=== PATIENT | female | born 1990 | race Caucasian/White ===

== ENCOUNTER → 2020-07-02 | Outpatient (CLI) | payer OTHER ==
[2020-07-02 10:29] LABS: Basophils # (A) 0.1 k/uL (0-0.2); Basophils % (A) 1 %; Eosinophils # (A) 0.2 k/uL (0-0.7); Eosinophils % (A) 3 %; HCT 38.2 % (34.0-46.0); Lymphocytes # (A) 2.6 k/uL (1.0-4.8); Lymphocytes % (A) 32 %; MCH 29.5 pg (25.0-35.0); MCHC 34.1 g/dL (31.0-37.0); MCV 86.5 fL (80.0-100.0); Mean Platelet Volume 9.6; Monocytes # (A) 0.3 k/uL (0-1.0); Monocytes % (A) 3 %; Neutrophils % (A) 60 %; Platelet Count 188 k/uL (150-450); RBC 4.42 m/uL (3.80-5.40); WBC 8.3 k/uL (3.8-10.6)
== END | disposition home or self-care (01) ==
LOC: LABPAT 08:53
PROVIDERS: ATTEND Orthopaedic Surgery
DX: Z01.818 Encounter for other preprocedural examination (principal); G56.01 Carpal tunnel syndrome, right upper limb
CPT/HCPCS: 36415; 81025; 85025; 93005

== ENCOUNTER 2020-07-04 13:47 | Day surgery (SDC) | payer OTHER ==
[2020-07-01 09:27] VITALS: BMI 47.0
--- NOTE | 2020-07-03 21:29 | HP ---
HISTORY AND PHYSICAL DATE OF SERVICE: Surgery 07/04/2020 HISTORY OF PRESENT ILLNESS: Flaco Hope is a 30-year-old gentleman seen with symptomatic left carpal tunnel syndrome. After we discussed options for treatment, he elected to proceed with decompression left median nerve. Consent was obtained. PAST MEDICAL HISTORY: Jta-cghjydv-mlebjatyi diabetes, hypertension. PAST SURGICAL HISTORY: Noncontributory. MEDICATIONS: Januvia, lisinopril, metformin. ALLERGIES: None reported. SOCIAL HISTORY: Denies tobacco use. PHYSICAL EXAMINATION: Evaluation of the left hand, he has a positive carpal compression and carpal Tinel's causing increased numbness and tingling in the median nerve distribution. He does have some decreased sensations throughout the median nerve distribution. There is good perfusion distally. There is good radial pulse present. He has full range of motion of his digits and wrist. RADIOGRAPHS: Radiographs of the wrist failed to reveal any osseous abnormality. IMPRESSION: 1. Left carpal tunnel syndrome. 2. Hypertension. 3. Hyg-ulimoqh-awdhqundc diabetes. PLAN: Decompression left median nerve. Surgery 07/04/2020. MMODL / IJN: [id number] /
[~2020-07-04 13:47] MED LIST: LACTATED RINGERS 1,000 ML IV SCH
[2020-07-04 14:12] VITALS: TEMP 96.9
[2020-07-04] MEDS ORDERED: ONDANSETRON 4 MG/2 ML VIAL ONE (14:18)
[2020-07-04 14:20] LABS: Glucose,Whole Blood 85 mg/dL (75-99)
[2020-07-04] MEDS ORDERED: DEXAMETHASONE SOD PHOSPHATE 4 MG/ML 1 ML VIAL IVP ONE (14:20)
[2020-07-04] MEDS ORDERED: ONDANSETRON 4 MG/2 ML VIAL IVP ONE (14:20)
[2020-07-04 14:54] LABS: ALT 21 U/L (4-34); AST 26 U/L (14-36); African American GFR (CKD) >90 (>60 ml/min/1.73 sqM); Albumin 4.1 g/dL (3.5-5.0); Alkaline Phosphatase 51 U/L (38-126); Anion Gap 9 mmol/L; Blood Urea Nitrogen 11 mg/dL (7-17); Carbon Dioxide 23 mmol/L (22-30); Chloride 103 mmol/L (98-107); Glucose 87 mg/dL (74-99); Non-African American GFR(CKD) >90 (>60 ml/min/1.73 sqM); Potassium 4.3 mmol/L (3.5-5.1); Sodium 135 mmol/L (137-145); Total Bilirubin 0.6 mg/dL (0.2-1.3)
[2020-07-04] MEDS ORDERED: BUPIVACAINE (PF) 0.25% 30 ML VIAL SQ ONE ×2 (15:54→16:11)
[2020-07-04] MEDS ORDERED: MIDAZOLAM 2 MG/2 ML VIAL ONE (15:55)
[2020-07-04] MEDS ORDERED: PROPOFOL 10 MG/ML 20 ML VIAL IV ONE (15:55)
[2020-07-04] MEDS ORDERED: fentaNYL (PF) 50 MCG/ML 2 ML AMP ONE (15:55)
[2020-07-04] MEDS ORDERED: KETAMINE 10 MG/ML 20 ML VIAL ONE (15:55)
--- NOTE | 2020-07-04 16:32 | P.OP ---
Date of Procedure: 07/04/20 Preoperative Diagnosis: Right carpal tunnel syndrome Postoperative Diagnosis: Right carpal tunnel syndrome Procedure(s) Performed: Decompression right median nerve Anesthesia: MAC, local Surgeon: James Steinberg Estimated Blood Loss (ml): 1 Pathology: none sent Condition: stable Disposition: PACU Indications for Procedure: 30-year-old patient seen with symptomatic right carpal tunnel syndrome. After having treatment options discussed, she elected to proceed with decompression right median nerve. Operative Findings: See description of procedure Description of Procedure: The patient was taken to the operative suite. The patient received IV antibiotics. The patient underwent IV sedation by the department of anesthesia. A well-padded tourniquet was placed proximal right upper extremity. The right upper extremity was prepped and draped in the normal sterile orthopedic fashion. I infiltrated the proposed incision site with 10 mL quarter percent plain Marcaine. The extremity was elevated and tourniquet insufflated to 250. I made an incision beginning at the distal volar wrist crease extending distally approximately 3 cm in line with the fourth metacarpal sharply through skin. I dissected down through the palmar fascia to the transverse carpal ligament. I now made a small incision through the central portion of transcarpal ligament. I completed the release proximally and distally with blunt Metzenbaums. There was good complete decompression of the nerve noted. I used cautery for hemostasis. There was good hemostasis. The wound was irrigated. I repaired the skin with nylon suture. I applied sterile dressings. The tourniquet was released with immediate capillary refill of all digits noted. The patient was now awakened and transferred to recovery stable condition.
[2020-07-04 16:42] VITALS: RESP 16
[2020-07-04 17:02] VITALS: BP 117/80; PULSE 69
== END 2020-07-04 17:24 | disposition home or self-care (01) ==
LOC: OR 13:47
PROVIDERS: ATTEND Orthopaedic Surgery
DX: G56.01 Carpal tunnel syndrome, right upper limb (principal); I10 Essential (primary) hypertension; E11.9 Type 2 diabetes mellitus without complications; Z79.84 Long term (current) use of oral hypoglycemic drugs; Z79.899 Other long term (current) drug therapy; Z98.890 Other specified postprocedural states
CPT/HCPCS: 80053; 64721; J2250; J1100; J0690; J2405; J3010; J2704

== ENCOUNTER 2020-07-18 10:16 | Day surgery (SDC) | payer OTHER ==
[2020-07-16 08:41] VITALS: BMI 47.9
--- NOTE | 2020-07-17 20:22 | HP ---
HISTORY AND PHYSICAL REASON FOR ADMISSION: Surgery scheduled for 07/18/2020 HISTORY OF PRESENT ILLNESS: Flaco Hope is a 30-year-old gentleman seen with symptomatic left carpal tunnel syndrome. We discussed options for treatment. The patient elected to proceed with decompression of the left median nerve. Consent regarding the procedure was obtained. PAST MEDICAL HISTORY: Bgk-bszryvt-ngslaejhh diabetes, hypertension. PAST SURGICAL HISTORY: Noncontributory. MEDICATIONS: Januvia, lisinopril, metformin. ALLERGIES: NONE. SOCIAL HISTORY: Patient denies tobacco use. PHYSICAL EXAMINATION: Physical evaluation of left hand reveals positive carpal compression, chronic positive carpal Tinel's both causing numbness and tingling throughout the median nerve distribution. There is some decreased sensation throughout the median nerve distribution. There is no tenderness along the A1 jose sites. There is good perfusion distally. There is a good radial pulse present. Radiographs revealed no osseous abnormality. IMPRESSION: 1. Left carpal tunnel syndrome. 2. Hypertension. 3. Dyt-zvlqdtf-sgzwnicqr diabetes. PLAN: Decompression left median nerve. Surgery scheduled for 07/18/2020. MMODL / IJN: [id number] /
[~2020-07-18 10:16] MED LIST changes: +DEXAMETHASONE SOD PHOSPHATE 4 MG/ML 1 ML VIAL IV ONE; +HYDROmorphone 0.5 MG/0.5 ML SYRINGE IVP PRN; +ONDANSETRON 4 MG/2 ML VIAL IVP ONE
[2020-07-18 10:59] LABS: Glucose,Whole Blood 165 mg/dL (75-99)
[2020-07-18 11:02] VITALS: TEMP 97.1
[2020-07-18] MEDS ORDERED: LIDOCAINE 1% (10MG/ML) FOR IV START IV ONE (11:04)
[2020-07-18] MEDS ORDERED: BUPIVACAINE (PF) 0.25% 30 ML VIAL SQ ONE ×2 (11:34→11:49)
[2020-07-18] MEDS ORDERED: fentaNYL (PF) 50 MCG/ML 2 ML AMP ONE (11:39)
[2020-07-18] MEDS ORDERED: PROPOFOL 10 MG/ML 20 ML VIAL IV ONE (11:39)
[2020-07-18] MEDS ORDERED: MIDAZOLAM 2 MG/2 ML VIAL ONE (11:39)
--- NOTE | 2020-07-18 12:14 | P.OP ---
Date of Procedure: 07/18/20 Preoperative Diagnosis: Left carpal tunnel syndrome Postoperative Diagnosis: Left carpal tunnel syndrome Procedure(s) Performed: Decompression left median nerve Anesthesia: MAC, local Surgeon: James Steinberg Estimated Blood Loss (ml): 0 Pathology: none sent Condition: stable Disposition: PACU Indications for Procedure: 30-year-old patient seen with symptomatic left carpal tunnel syndrome. After having treatment options discussed, she elected to proceed with decompression. Consent was obtained. Operative Findings: See description of procedure Description of Procedure: She was taken to the operative suite. Patient received preoperative IV antibiotics. Well-padded tourniquet placed proximal left upper extremity. Left upper extremity was prepped and draped in the normal sterile orthopedic fashion. The patient received IV sedation by the department of anesthesia. The proposed incision site was infiltrated with 15 mL of quarter percent plain Marcaine. When sufficient local analgesia was noted the extremity was elevated and tourniquet insufflated to 250. I made an incision beginning at the distal volar wrist crease extending distally approximately 3 cm in line with the fourth the carpal sharply through skin. I dissected down to the transverse carpal ligament. I made a small incision through the transverse carpal ligament. I released the transverse carpal ligament proximally and distally with blunt Metzenbaums. There was good complete release of the ligament noted. Some hemostasis was achieved via electrocautery. The skin margins were proximal nylon suture. I applied sterile dressings followed by sterile web roll and Coban. The tourniquet was released and I noted immediate capillary refill of all digits. The patient then transferred to recovery in stable condition having tolerated procedure well.
[2020-07-18 12:40] VITALS: RESP 18
[2020-07-18 12:56] VITALS: BP 110/74; PULSE 74
== END 2020-07-18 13:01 | disposition home or self-care (01) ==
LOC: OR 10:16
PROVIDERS: ATTEND Orthopaedic Surgery
DX: G56.02 Carpal tunnel syndrome, left upper limb (principal); E11.9 Type 2 diabetes mellitus without complications; I10 Essential (primary) hypertension; Z79.84 Long term (current) use of oral hypoglycemic drugs; Z79.899 Other long term (current) drug therapy; F17.200 Nicotine dependence, unspecified, uncomplicated
CPT/HCPCS: 64721; J2250; J1100; J0690; J2405; J3010; J2704

== ENCOUNTER → 2021-01-13 | Outpatient (CLI) | payer OTHER ==
[2021-01-13 14:41] VITALS: BP 133/83; PULSE 70; RESP 16; TEMP 98.2; BMI 48.5
[2021-01-13 15:54] LABS: HCT 38.1 % (34.0-46.0); HGB 12.7 gm/dL (11.4-16.0); MCH 29.5 pg (25.0-35.0); MCHC 33.4 g/dL (31.0-37.0); MCV 88.5 fL (80.0-100.0); Mean Platelet Volume 9.8; Platelet Count 209 k/uL (150-450); RBC 4.31 m/uL (3.80-5.40); RDW 12.8 % (11.5-15.5); WBC 9.6 k/uL (3.8-10.6)
--- NOTE | 2021-01-13 15:59 | P.HPBAR ---
Bariatric H&P - History & Physicial H&P Date: 01/13/21 History & Physicial: Visit/CC: Initial Visit Patient initial contact: Initial weight: 121.563 kg Initial weight in pounds: 268.00 Height: 5 ft 1.5 in Initial BMI: 49.0 Last weight: Current weight: 122.215 kg Current weight in pounds: 265.38 Current BMI: 48.5 [place] body weight (based on NIH guidelines): 49.895 kg Excess body weight loss: 1.6% The patient is a 30 year-old F who presents for Bariatric Assessment. She presents today for initial consultation. She is morbidly obese. Her BMI is 50. She is interested sleeve gastrectomy. Past Medical History Past Medical History: Diabetes Mellitus, Hypertension History of Any Multi-Drug Resistant Organisms: None Reported Past Surgical History: Section Past Anesthesia/Blood Transfusion Reactions: No Reported Reaction Smoking Status: Current some day smoker - Past Family History Mother Family Medical History: No Reported History Surgical - Exam Vital Signs Temp Pulse Resp BP 98.2 F 70 16 133/83 01/13/21 14:32 01/13/21 14:32 01/13/21 14:32 01/13/21 14:32 - General well developed, well nourished, no distress - Eyes PERRL - ENT normal pinna - Neck no masses - Respiratory normal expansion - Cardiovascular Rhythm: regular - Abdomen Abdomen: soft, non tender Results - Labs 01/13/21 15:05 Bariatric Assessment & Plan Plan: Morbid obesity. Patient will be scheduled for EGD. Patient has an excellent understanding of sleeve gastrectomy. Over the risks and benefits of procedure. Patient will follow-up after EGD is performed. Bariatric Checklist Checklist: Plan: Checklist: EGD: 1. Hiatal hernia: 2. H. Pylori: HgbA1c: Vitamin D: Smoking: Primary care physician referral: Psychiatry clearance: Cardiology clearance: Sleep study: Diet journal: VTE risk score: VTE risk level: Rehab needs at discharge:
[2021-01-14 04:42] LABS: ALT 48 U/L (8-44); AST 26 U/L (13-35); African American GFR (CKD) 148.3 (60.0-200.0); Albumin 4.3 g/dL (3.8-4.9); Albumin/Globulin Ratio 1.71 (1.60-3.17); Alkaline Phosphatase 65 U/L (41-126); BUN/Creat Ratio 19.31 Ratio (12.00-20.00); Blood Urea Nitrogen 10.1 mg/dL (9.0-27.0); Calcium 9.3 mg/dL (8.7-10.3); Carbon Dioxide 20.8 mmol/L (21.6-31.8); Chloride 100 mmol/L (96-109); Globulin 2.5 g/dL (1.6-3.3); Glucose 241 mg/dL (70-110); Potassium 4.3 mmol/L (3.5-5.5); Sodium 133 mmol/L (135-145); Total Bilirubin <0.20 mg/dL (0.30-1.20); Total Protein 6.8 g/dL (6.2-8.2)
== END ==
LOC: BARWHC3 14:19
PROVIDERS: ATTEND Surgery
DX: E66.01 Morbid (severe) obesity due to excess calories (principal); I10 Essential (primary) hypertension; E11.9 Type 2 diabetes mellitus without complications; F17.200 Nicotine dependence, unspecified, uncomplicated; Z68.43 Body mass index [BMI] 50.0-59.9, adult
CPT/HCPCS: 80053; 82306; 82607; 82746; 83036; 84425; 85027; 93005; 99203

== ENCOUNTER 2021-04-07 07:00 | Day surgery (SDC) | payer OTHER ==
[2021-04-03 09:17] VITALS: BMI 50.1
[2021-04-07] MEDS ORDERED: LACTATED RINGERS 1,000 ML IV SCH (07:51)
[2021-04-07] MEDS ORDERED: LIDOCAINE 1% (10MG/ML) FOR IV START INTRADERMA PRN (07:51)
[2021-04-07 07:56] VITALS: TEMP 97.2
[2021-04-07 08:15] LABS: Glucose,Whole Blood 128 mg/dL (75-99)
[2021-04-07] MEDS ORDERED: GLYCOPYRROLATE 0.2 MG/ML 2 ML VIAL ONE (08:32)
[2021-04-07] MEDS ORDERED: LIDOCAINE 1% INJ 10MG/ML (20 ML MDV) ONE (08:32)
[2021-04-07] MEDS ORDERED: KETAMINE 10 MG/ML 20 ML VIAL ONE (08:32)
[2021-04-07] MEDS ORDERED: PROPOFOL 10 MG/ML 20 ML VIAL IV ONE (08:32)
--- NOTE | 2021-04-07 08:35 | P.GSHP ---
History of Present Illness H&P Date: 04/07/21 Chief Complaint: GERD, morbid obesity Is a 31-year-old female with GERD. Patient's undergoing workup for sleeve gastrectomy. BMI is 51. Past Medical History Past Medical History: Diabetes Mellitus, Hypertension History of Any Multi-Drug Resistant Organisms: None Reported Past Surgical History: Section, Orthopedic Surgery Additional Past Surgical History / Comment(s): carpal tunnel danielle, Past Anesthesia/Blood Transfusion Reactions: No Reported Reaction Smoking Status: Former smoker - Past Family History Mother Family Medical History: No Reported History Medications and Allergies Home Medications Medication Instructions Recorded Confirmed Type lisinopriL [Prinivil] 20 mg PO QAM 07/01/20 04/03/21 History metFORMIN HCL [Glucophage] 1,000 mg PO BID 07/01/20 04/03/21 History Pioglitazone [Actos] 30 mg PO DAILY 03/05/21 04/03/21 History L.acidoph,Paracasei, B.lactis 1 each PO DAILY 04/03/21 04/03/21 History [Probiotic] Multivitamins, Thera [Multivitamin 1 tab PO DAILY 04/03/21 04/03/21 History (formulary)] Allergies Allergy/AdvReac Type Severity Reaction Status Date / Time No Known Allergies Allergy Verified 04/07/21 07:51 Surgical - Exam Vital Signs Temp Pulse Resp BP Pulse Ox 97.2 F L 57 L 20 137/77 96 04/07/21 07:55 04/07/21 07:55 04/07/21 07:55 04/07/21 07:55 04/07/21 07:55 - General well developed, well nourished, no distress - Eyes PERRL - ENT normal pinna - Neck no masses - Respiratory normal expansion - Cardiovascular Rhythm: regular - Abdomen Abdomen: soft, non tender Results - Labs Abnormal Lab Results - Last 24 Hours (Table) 04/07/21 Range/Units 08:12 POC Glucose (mg/dL) 128 H (75-99) mg/dL Assessment and Plan Assessment: GERD, morbid obesity. We'll perform EGD.
--- NOTE | 2021-04-07 08:42 | P.OP ---
Date of Procedure: 04/07/21 Preoperative Diagnosis: GERD Morbid obesity Postoperative Diagnosis: Morbid obesity Antral gastritis Procedure(s) Performed: EGD Anesthesia: MAC Surgeon: Steve Palma Pathology: other (Antrum) Condition: stable Disposition: PACU Description of Procedure: Patient's placed on the endoscopy table in the lateral position. She received IV sedation. The gastroscope placed oropharynx passed in the esophagus into the stomach. Scope was placed through the pylorus. The first and second portion of the duodenum appeared normal. Scope summer back the antrum this. Mildly inflamed. A biopsies performed. Scope was then retroflexed and the remainder of the stomach appeared normal. The GE junction was at 40 cm. The distal esophagus appeared normal. The proximal esophagus. Normal. Scope withdrawn for patient.
[2021-04-07 08:52] VITALS: RESP 15
[2021-04-07 09:07] VITALS: BP 116/76; PULSE 75
== END 2021-04-07 09:18 | disposition home or self-care (01) ==
LOC: ORWHC2ENDO 07:00
PROVIDERS: ATTEND Surgery
DX: K21.9 Gastro-esophageal reflux disease without esophagitis (principal); K29.50 Unspecified chronic gastritis without bleeding; E66.01 Morbid (severe) obesity due to excess calories; Z68.43 Body mass index [BMI] 50.0-59.9, adult; E11.9 Type 2 diabetes mellitus without complications; I10 Essential (primary) hypertension; F41.9 Anxiety disorder, unspecified; Z98.891 History of uterine scar from previous surgery; Z98.890 Other specified postprocedural states; Z87.891 Personal history of nicotine dependence; Z79.84 Long term (current) use of oral hypoglycemic drugs; Z79.899 Other long term (current) drug therapy
CPT/HCPCS: 81025; 88305; 43239; J2001; J2704

== ENCOUNTER → 2021-04-21 | Outpatient (CLI) | payer OTHER ==
[2021-04-21 11:42] VITALS: BMI 49.4
[2021-04-21 13:31] VITALS: BP 127/83; PULSE 61; RESP 16; TEMP 97.7
--- NOTE | 2021-04-21 15:29 | P.HPBAR ---
Bariatric H&P - History & Physicial H&P Date: 04/21/21 History & Physicial: Visit/CC: EGD F/U Patient initial contact: Initial weight: 121.563 kg Initial weight in pounds: 268.00 Height: 5 ft 1 in Initial BMI: 49.0 Last weight: Current weight: 122.47 kg Current weight in pounds: 270.00 Current BMI: 49.4 [place] body weight (based on NIH guidelines): 49.895 kg Excess body weight loss: The patient is a 31 year-old F who presents for Bariatric Assessment. Patient presents today for presurgical consultation. She is undergone recent EGD. She is morbidly obese. Her BMI is 51. She has an excellent understanding of sleeve gastrectomy. Past Medical History Past Medical History: Diabetes Mellitus, Hypertension History of Any Multi-Drug Resistant Organisms: None Reported Past Surgical History: Section Additional Past Surgical History / Comment(s): carpal tunnel danielle, Past Anesthesia/Blood Transfusion Reactions: No Reported Reaction Past Psychological History: Anxiety Smoking Status: Current some day smoker Past Alcohol Use History: Occasional Additional Past Alcohol Use History / Comment(s): quit smoking dec 2020, smoked for 3-4 yrs Past Drug Use History: None Reported - Past Family History Mother Family Medical History: No Reported History Surgical - Exam Vital Signs Temp Pulse Resp BP 97.7 F 61 16 127/83 04/21/21 13:29 04/21/21 13:29 04/21/21 13:29 04/21/21 13:29 - General well developed, well nourished, no distress - Eyes PERRL - ENT normal pinna - Neck no masses - Respiratory normal expansion - Cardiovascular Rhythm: regular - Abdomen Abdomen: soft, non tender Bariatric Assessment & Plan Plan: Morbid obesity, BMI 51. Patient will be scheduled for laparoscopic sleeve gastrectomy once her insurance authorization requirements have been met. Bariatric Checklist Checklist: Plan: Checklist: EGD: 1. Hiatal hernia: 2. H. Pylori: HgbA1c: Vitamin D: Smoking: Primary care physician referral: Dr. LANGFORD Psychiatry clearance: Cardiology clearance: Sleep study: Diet journal: VTE risk score: VTE risk level: Rehab needs at discharge:
== END ==
LOC: BARWHC3 08:48
PROVIDERS: ATTEND Surgery
DX: E66.01 Morbid (severe) obesity due to excess calories (principal); E11.9 Type 2 diabetes mellitus without complications; I10 Essential (primary) hypertension; F41.9 Anxiety disorder, unspecified; Z87.891 Personal history of nicotine dependence; Z68.43 Body mass index [BMI] 50.0-59.9, adult; Z71.51 Drug abuse counseling and surveillance of drug abuser
CPT/HCPCS: 80323; 80307; 99211; 97804; G0482

== ENCOUNTER 2021-09-30 23:34 | Observation (INO) | payer OTHER ==
[2021-10-01 00:32] LABS: Basophils # (A) 0.1 k/uL (0-0.2); Basophils % (A) 1 %; Eosinophils # (A) 0.2 k/uL (0-0.7); Eosinophils % (A) 2 %; HGB 12.3 gm/dL (11.4-16.0); Lymphocytes % (A) 34 %; MCHC 34.1 g/dL (31.0-37.0); Mean Platelet Volume 9.3; Monocytes # (A) 0.3 k/uL (0-1.0); Monocytes % (A) 4 %; Neutrophils # (A) 5.1 k/uL (1.3-7.7); Neutrophils % (A) 59 %; Platelet Count 229 k/uL (150-450); RBC 4.09 m/uL (3.80-5.40); RDW 13.3 % (11.5-15.5); WBC 8.7 k/uL (3.8-10.6)
[2021-10-01 00:51] LABS: ALT 19 U/L (4-34); AST 19 U/L (14-36); African American GFR (CKD) >90 (>60 ml/min/1.73 sqM); Albumin 4.4 g/dL (3.5-5.0); Alkaline Phosphatase 53 U/L (38-126); Anion Gap 9 mmol/L; Blood Urea Nitrogen 11 mg/dL (7-17); Calcium 9.2 mg/dL (8.4-10.2); Carbon Dioxide 24 mmol/L (22-30); Chloride 104 mmol/L (98-107); Glucose 115 mg/dL (74-99); Non-African American GFR(CKD) >90 (>60 ml/min/1.73 sqM); Potassium 4.1 mmol/L (3.5-5.1); Sodium 137 mmol/L (137-145); Total Bilirubin 0.3 mg/dL (0.2-1.3); Total Protein 7.4 g/dL (6.3-8.2)
--- NOTE | 2021-10-01 00:54 | XR ---
EXAM: XR Chest, 2 Views CLINICAL HISTORY: ITS. REASON XR Reason: Chest Pain TECHNIQUE: Frontal and lateral views of the chest. COMPARISON: No relevant prior studies available. FINDINGS: Lungs: Unremarkable. No consolidation. Pleural space: Unremarkable. No pneumothorax. Heart: Borderline cardiomegaly. Mediastinum: Unremarkable. Bones/joints: Unremarkable. IMPRESSION: No acute abnormality.
--- NOTE | 2021-10-01 02:11 | ED ---
Chest Pain HPI - General Chief Complaint: Chest Pain Stated Complaint: Chest pressure, dizziness Time Seen by Provider: 10/01/21 02:10 Source: patient, RN notes reviewed, old records reviewed Mode of arrival: wheelchair Limitations: no limitations - History of Present Illness Initial Comments: This is a 31-year-old female to the emergency department for evaluation history of high blood pressure diabetes coming with chest pain and near syncopal events episodes of bradycardia. She's had on and off chest pain for about 5 days now unsure problem provoking factors. Nothing seems to make it better worsen just appears to come on. Patient states she's had multiple episodes here in the ER where she feels heaviness on her chest like she is given a pass out. MD Complaint: chest pain -: days(s) (5) Onset: during rest, during exertion Pain Location: substernal, left chest Pain Radiation: none Severity: moderate Severity scale (1-10): 4 Quality: tightness, heaviness Consistency: intermittent Improves With: nothing Worsens With: exertion, inspiration Anginal Symptoms: dyspnea Other Symptoms: palpitations (low HR) Treatments Prior to Arrival: none - Related Data Home Medications Medication Instructions Recorded Confirmed lisinopriL [Prinivil] 20 mg PO QAM 07/01/20 04/21/21 metFORMIN HCL [Glucophage] 1,000 mg PO BID 07/01/20 04/21/21 Pioglitazone [Actos] 30 mg PO DAILY 03/05/21 04/21/21 L.acidoph,Paracasei, B.lactis 1 each PO DAILY 04/03/21 04/21/21 [Probiotic] Multivitamins, Thera [Multivitamin 1 tab PO DAILY 04/03/21 04/21/21 (formulary)] Allergies Allergy/AdvReac Type Severity Reaction Status Date / Time No Known Allergies Allergy Verified 10/01/21 00:24 Review of Systems ROS Statement: Those systems with pertinent positive or pertinent negative responses have been documented in the HPI. ROS Other: All systems not noted in ROS Statement are negative. EKG Findings - EKG Comments: EKG Findings:: EKG is sinus rhythm 61. NV 186 QRS 114 QTc 44 Past Medical History Past Medical History: Diabetes Mellitus, Hypertension History of Any Multi-Drug Resistant Organisms: None Reported Past Surgical History: Section Additional Past Surgical History / Comment(s): carpal tunnel danielle, Past Anesthesia/Blood Transfusion Reactions: No Reported Reaction Past Psychological History: Anxiety Smoking Status: Current some day smoker Past Alcohol Use History: Occasional Past Drug Use History: None Reported - Past Family History Mother Family Medical History: No Reported History General Exam General appearance: alert, in no apparent distress, anxious, obese Head exam: Present: atraumatic, normocephalic, normal inspection Eye exam: Present: normal appearance, PERRL, EOMI. Absent: scleral icterus, conjunctival injection, periorbital swelling ENT exam: Present: normal exam, mucous membranes moist Neck exam: Present: normal inspection. Absent: tenderness, meningismus, lymphadenopathy Respiratory exam: Present: normal lung sounds bilaterally. Absent: respiratory distress, wheezes, rales, rhonchi, stridor Cardiovascular Exam: Present: regular rate, normal rhythm, normal heart sounds. Absent: systolic murmur, diastolic murmur, rubs, gallop, clicks GI/Abdominal exam: Present: soft, normal bowel sounds. Absent: distended, tenderness, guarding, rebound, rigid Extremities exam: Present: normal inspection, full ROM, normal capillary refill. Absent: tenderness, pedal edema, joint swelling, calf tenderness Back exam: Present: normal inspection Neurological exam: Present: alert, oriented X3, CN II-XII intact Psychiatric exam: Present: normal affect, normal mood Skin exam: Present: warm, dry, intact, normal color. Absent: rash Course Vital Signs 10/01/21 00:18 Temperature 98.2 F Pulse Rate 60 Respiratory 19 Rate Blood Pressure 148/90 O2 Sat by Pulse 96 Oximetry - Reevaluation(s) Reevaluation #1: 10/01/21 03:24 Medical record is reviewed Reevaluation #2: 10/01/21 03:24 Patient is without syncopal event here in the ER Reevaluation #3: 10/01/21 03:24 Patient informed results and questions answered - Consultations Consultation #1: Spoke with Dr. Grande regarding admission she is agreeable Chest Pain MDM - MDM 31 female to the emergency department for evaluation patient presents today for evaluation of near-syncope chest pain episodes of bradycardia. Patient be admitted for cardiac evaluation Disposition Clinical Impression: Chest pain, Near syncope, Bradycardia Disposition: ADMITTED IP TO THIS HOSP Condition: Good Is patient prescribed a controlled substance at d/c from ED?: No Referrals: Leon Elliott DO [Primary Care Provider] - 1-2 days
[2021-10-01] MEDS ORDERED: NITROGLYCERIN SL TABS 0.4 MG TAB SUBLINGUAL PRN (03:20)
[2021-10-01] MEDS ORDERED: ASPIRIN 81 MG PO STA (03:20)
[2021-10-01 08:03] LABS: Glucose,Whole Blood 103 mg/dL (70-110)
[2021-10-01 08:06] VITALS: TEMP 98
[2021-10-01] MEDS ORDERED: lisinopriL 20 MG TAB PO SCH (09:00)
[2021-10-01] MEDS ORDERED: PIOGLITAZONE 30 MG TAB PO SCH (09:00)
--- NOTE | 2021-10-01 09:16 | P.CRDCN ---
History of Present Illness Consult date: 10/01/21 History of present illness: HISTORY OF PRESENT ILLNESS: This is a 31 year old female with a past medical history significant for hypertension and diabetes. 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 We have been asked to see the patient in consultation for chest pain and presyncope. Patient examined at the bedside. Patient states on Wednesday she was at a [facility] service and had just finished eating and was sitting in a chair when she began to feel hot and short of breath. She felt like she was going to pass out. However she did not have any syncopal episodes. She also reports some tingling in the chest. She states the tingling starts in her chest and goes down into her arms and her legs. She states that she went to urgent care and EKG was performed which they said was unremarkable. At the time of examination she denies chest pain or pressure. She reports a family history of CAD and states her mom has had stent placements in the past. * EKG reveals sinus mechanism with no signs of acute ischemia * Chest xray negative for acute process * Laboratory data: WBC 8.7. Hemoglobin 12.3. Blood count 229. Sodium 137. Potassium 4.1. BUN 11. Creatinine 0.52. Magnesium 2.0. Troponin negative 3 * Current home cardiac medications include lisinopril 20 mg daily REVIEW OF SYSTEMS: At the time of my exam: CONSTITUTIONAL: Denies fever or chills. HEENT: Denies blurred vision, vision changes, or eye pain. Denies hemoptysis CARDIOVASCULAR: Denies chest pain. Denies orthopnea. Denies PND. Denies palpitations RESPIRATORY: Denies shortness of breath. GASTROINTESTINAL: Denies abdominal pain. Denies nausea or vomiting. HEMATOLOGIC: Denies bleeding disorders. GENITOURINARY: Denies any blood in urine. SKIN: Denies pruitis. Denies rash. PHYSICAL EXAM: VITAL SIGNS: Reviewed. GENERAL: Well-developed in no acute distress. HEENT: Head is normocephalic. Pupils are equal, round. Sclerae anicteric. Mucous membranes of the mouth are moist. Neck supple. No JVD or thyromegaly LUNGS: Respirations even and unlabored. Lungs essentially clear to auscultation bilaterally. HEART: Regular rate and rhythm. S1 and S2 heard. ABDOMEN: Soft. Nondistended. Nontender. EXTREMITIES: Normal range of motion. No clubbing or cyanosis. Peripheral pulses intact. No lower extremity edema NEUROLOGIC: Awake and alert. Oriented x 3. ASSESSMENT: Chest pain, troponin negative x 3 Presyncope, likely vasovagal in nature Hypertension Diabetes Morbid obesity PLAN: An acute coronary event has been ruled out Resume home cardiac medications Check TSH Obtain 2-D echo to assess cardiac structure and function Patient to undergo stress test today to assess for reversible ischemia Further recommendations pending patient's course Nurse practitioner note has been reviewed by physician. Signing provider agrees with the documented findings, assessment, and plan of care. Past Medical History Past Medical History: Diabetes Mellitus, Hypertension History of Any Multi-Drug Resistant Organisms: None Reported Past Surgical History: Section Additional Past Surgical History / Comment(s): carpal tunnel danielle, Past Anesthesia/Blood Transfusion Reactions: No Reported Reaction Past Psychological History: Anxiety Smoking Status: Current some day smoker Past Alcohol Use History: Occasional Past Drug Use History: None Reported - Past Family History Mother Family Medical History: No Reported History Father History Unknown: Yes Medications and Allergies Home Medications Medication Instructions Recorded Confirmed Type lisinopriL [Prinivil] 20 mg PO DAILY 07/01/20 10/01/21 History Pioglitazone [Actos] 30 mg PO DAILY 03/05/21 10/01/21 History Multivitamins, Thera [Multivitamin 1 tab PO DAILY 04/03/21 10/01/21 History (formulary)] Allergies Allergy/AdvReac Type Severity Reaction Status Date / Time No Known Allergies Allergy Verified 10/01/21 06:38 Physical Exam Vitals: Vital Signs Temp Pulse Resp BP Pulse Ox 10/01/21 04:00 61 140/92 10/01/21 00:18 98.2 F 60 19 148/90 96 Intake and Output 09/30/21 10/01/21 10/01/21 22:59 06:59 14:59 Other: Weight 127.006 kg Results 10/01/21 00:21 10/01/21 00:21 Cardiac Enzymes 10/01/21 10/01/21 10/01/21 Range/Units 00:21 00:21 03:30 AST 19 (14-36) U/L Troponin I <0.012 <0.012 (0.000-0.034) ng/mL 10/01/21 Range/Units 05:50 AST (14-36) U/L Troponin I <0.012 (0.000-0.034) ng/mL CBC 10/01/21 Range/Units 00:21 WBC 8.7 (3.8-10.6) k/uL RBC 4.09 (3.80-5.40) m/uL Hgb 12.3 (11.4-16.0) gm/dL Hct 36.0 (34.0-46.0) % Plt Count 229 (150-450) k/uL Comprehensive Metabolic Panel 10/01/21 Range/Units 00:21 Sodium 137 (137-145) mmol/L Potassium 4.1 (3.5-5.1) mmol/L Chloride 104 (98-107) mmol/L Carbon Dioxide 24 (22-30) mmol/L BUN 11 (7-17) mg/dL Creatinine 0.52 (0.52-1.04) mg/dL Glucose 115 H (74-99) mg/dL Calcium 9.2 (8.4-10.2) mg/dL AST 19 (14-36) U/L ALT 19 (4-34) U/L Alkaline Phosphatase 53 (38-126) U/L Total Protein 7.4 (6.3-8.2) g/dL Albumin 4.4 (3.5-5.0) g/dL Current Medications Generic Name Dose Route Start Last Admin Trade Name Freq PRN Reason Stop Dose Admin Aspirin 325 mg 10/02/21 09:00 Aspirin 325 Mg Tab PO DAILY [facility] Insulin Aspart 0 unit 10/01/21 12:30 Insulin Aspart (Novolog) 100 Unit/Ml Vial SQ ACHS [facility] Protocol Lisinopril 20 mg 10/01/21 09:00 Lisinopril 20 Mg Tab PO DAILY [facility] Nitroglycerin 0.4 mg 10/01/21 03:20 Nitroglycerin Sl Tabs 0.4 Mg Tab SUBLINGUAL Q5M PRN Chest Pain Pioglitazone HCl 30 mg 10/01/21 09:00 Pioglitazone 30 Mg Tab PO DAILY [facility] Intake and Output 09/30/21 10/01/21 10/01/21 22:59 06:59 14:59 Other: Weight 127.006 kg 10/01/21 00:21 10/01/21 00:21
--- NOTE | 2021-10-01 09:53 | P.HPIM ---
History of Present Illness H&P Date: 10/01/21 HISTORY AND PHYSICAL AND DISCHARGE SUMMARY: HISTORY OF PRESENT ILLNESS This is a 31-year-old female patient of Dr. Elliott with past medical history of hypertension, diabetes mellitus type 2, morbid obesity. Patient states that she worked a 12 hour shift on and had significant leg swelling after. On wednesday, she started having episodes of burning chest pain on the left side which continued intermittently until Wednesday evening. Through the weekend, she was having sensation that she was going to pas out but no LOC. She had another episode of presyncope last evening while on the computer and decided to come in to be evaluated. Re: DM, patient has been on metformin in the past along with actos but was taken off metformin due to hypoglycemia according to the patient. Regarding morbid obesity, patient is working with Dr. Wilkes at [facility] regarding gastric sleeve procedure. Patient presented to [facility] emergency center. She was found to be afebrile, heart rate 60, blood pressure 148/90, pulse ox 96%. EKG is a sinus rhythm at 61 bpm. CBC was unremarkable. Electrolytes and renal function normal. Blood sugar 115. Troponin negative on 3 draws. Magnesium 2.0. Liver function tests normal. Chest x-ray shows no acute abnormality. Patient was started on aspirin and admitted to the observation unit, cardiology consult for near syncope and chest pain. Echocardiogram reveals EF of 55-60%, trace to mild mitral regurgitation, mild tricuspid regurgitation. Stress echocardiogram was negative and patient was cleared for discharge home. REVIEW OF SYSTEMS Constitutional: No fever, no chills, no night sweats. No weight change. No weakness, fatigue or lethargy. No daytime sleepiness. EENT: No headache. No blurred vision or double vision, no loss of vision. No loss of Hearing, no ringing in the ears, no dizziness. No nasal drainage or congestion. No epistaxis. No sore throat. Lungs: No shortness of breath, cough, no sputum production. No wheezing. Cardiovascular: Reports chest pain, no lower extremity edema. No palpitations. No paroxysmal nocturnal dyspnea. No orthopnea. No lightheadedness or dizziness. Reports near syncopal episodes. Abdominal: No abdominal pain. No nausea, vomiting. No diarrhea. No constipation. No bloody or tarry stools. No loss of appetite. Genitourinary: No dysuria, increased frequency, urgency. No urinary retention. Musculoskeletal: No myalgias. No muscle weakness, no gait dysfunction, no frequent falls. No back pain. No neck pain. Integumentary: No wounds, no lesions. No rash or pruritus. No unusual bruising. No change in hair or nails. Neurologic: No aphasia. No facial droop. No change in mentation. No head injury. No headache. No paralysis. No paresthesia. Psychiatric: No depression. No anxiety. No mood swings. Endocrine: No abnormal blood sugars. No weight change. No excessive sweating or thirst. No cold intolerance. SOCIAL HISTORY Patient was a smoker for only a few years and quit in 2020, occasional alcohol use, no illicit drug use FAMILY HISTORY Mother is alive at age 65 with history of hypertension, diabetes, coronary artery disease with stent. Father she does not know his medical history. Patient has one brother with hypertension one sister with thyroid disease. PHYSICAL EXAMINATION Gen: This is a 31-year-old morbidly obese female. Patient is resting in bed and appears to be comfortable and in no acute distress. HEENT: Head is atraumatic, normocephalic. Pupils equal, round. Sclerae is anicteric. NECK: Supple. No JVD. No lymphadenopathy. No thyromegaly. LUNGS: Clear to auscultation. No wheezes or rhonchi. No intercostal retractions. HEART: Regular rate and rhythm. No murmur. ABDOMEN: Soft. Bowel sounds are present. No masses. No tenderness. EXTREMITIES: No pedal edema. No calf tenderness. NEUROLOGICAL: Patient is awake, alert and oriented x3. Cranial nerves 2 through 12 are grossly intact. ASSESSMENT AND PLAN 1. Chest pain. Cardiology consult appreciated. Stress echo today. 2. Near syncope. 3. Hypertension. Patient will be resumed on lisinopril 20 mg daily. 4. Diabetes mellitus type 2. Hold Actos 30 mg daily, NovoLog scale before meals and at bedtime. 5. Morbid obesity with BMI of 52. Patient is working with [facility] for gastric sleeve procedure in the near future 6. Recommend holding Actos as could be culprit of patient's symptoms and would recommend use of metformin or other agent for diabetes control. Patient placed as an observation status. DISCHARGE PLAN Return home. DISCHARGE MEDICATIONS Impression and plan of care have been directed as dictated by the signing ph ysician. Tiesha Valdez nurse practitioner acting as scribe for signing physician. Past Medical History Past Medical History: Diabetes Mellitus, Hypertension History of Any Multi-Drug Resistant Organisms: None Reported Past Surgical History: Section Additional Past Surgical History / Comment(s): carpal tunnel danielle, Past Anesthesia/Blood Transfusion Reactions: No Reported Reaction Past Psychological History: Anxiety Smoking Status: Current some day smoker Past Alcohol Use History: Occasional Past Drug Use History: None Reported - Past Family History Mother Family Medical History: No Reported History Father History Unknown: Yes Medications and Allergies Home Medications Medication Instructions Recorded Confirmed Type lisinopriL [Prinivil] 20 mg PO DAILY 07/01/20 10/01/21 History Multivitamins, Thera [Multivitamin 1 tab PO DAILY 04/03/21 10/01/21 History (formulary)] Allergies Allergy/AdvReac Type Severity Reaction Status Date / Time No Known Allergies Allergy Verified 10/01/21 06:38 Physical Exam Vitals: Vital Signs Temp Pulse Resp BP Pulse Ox 10/01/21 04:00 61 140/92 10/01/21 00:18 98.2 F 60 19 148/90 96 Intake and Output 09/30/21 10/01/21 10/01/21 22:59 06:59 14:59 Other: Weight 127.006 kg Results CBC & Chem 7: 10/01/21 00:21 10/01/21 00:21 Labs: Abnormal Lab Results - Last 24 Hours (Table) 10/01/21 Range/Units 00:21 Glucose 115 H (74-99) mg/dL
[2021-10-01] MEDS ORDERED: INSULIN ASPART (NovoLOG) 100 UNIT/ML VIAL SQ SCH (12:30)
--- NOTE | 2021-10-01 13:15 | CA ---
Exercise Stress Test Report Name: [facility] Exam Date: 10/01/2021 11:53 Exam Location: [facility] Stress Ht (in): 61 Wt (lb): 280 BSA: 2.18 Ordering Phys: Qing Gao Referring Phys: CHOCO,, Technologist: MARIAH,, Age: 31 Gender: F : 1990 Procedure CPT: Indications: CP ICD-10 Codes: Patient History: CP, PALP, HTN, DM, FAMILY HX, FORMER SMOKER Medications: LISINOPRIL, ACTOSE, MULTI VIT Meds past 24 hrs: Pretest Chest Pain: STRESS TEST José Protocol Exercise Duration (min:sec): 06:[address] Depressions (mm): Angina Score: Palacios Score: Resting HR (bpm): 81 Peak HR (bpm): 170 Resting BP (mmHg): 114 / 54 Peak BP (mmHg): 162 / 39 MPHR: 189 Target HR: 161 % MPHR: 90 METS: 7.7 Total Dose: Peak Dose: Atropine: Double Product: 59970 BP Response: Stress Termination: Reached target heart rate Stress Symptoms: Stress Summary: ECG ANALYSIS Resting ECG: Stress ECG: CONCLUSIONS Good exercise tolerance Excellent augmentation in the heart rate and blood pressure response to exercise. The patient achieved 90% of maximum predicted heart rate Normal EKG and response to exercise Dr. Eric Parikh MD (Electronically Signed) Final Date: 01 October 2021 13:15
[2021-10-01 13:30] VITALS: BP 131/80; PULSE 83; RESP 20
[2021-10-02] MEDS ORDERED: ASPIRIN 325 MG TAB PO SCH (09:00)
--- NOTE | 2021-10-02 10:51 | CA ---
Transthoracic Echo Report Name: Flaco [facility] Age: 31 Gender: F : 1990 Exam Date: 10/01/2021 10:24 Exam Location: [facility] Ht (in): 61 Wt (lb): 280 Ordering Physician: Qing Gao Attending/Referring Phys: [id number], [employer] Circulation Assistant Gladys Sun RDCS Procedure CPT: Indications: LV function Cardiac Hx: Technical Quality: Fair Contrast 1: Total Dose (mL): Contrast 2: Total Dose (mL): MEASUREMENTS (Male / Female) Normal Values 2D ECHO LV Diastolic Diameter PLAX 3.9 cm 4.2 - 5.9 / 3.9 - 5.3 cm LV Systolic Diameter PLAX 2.5 cm IVS Diastolic Thickness 1.6 cm 0.6 - 1.0 / 0.6 - 0.9 cm LVPW Diastolic Thickness 1.8 cm 0.6 - 1.0 / 0.6 - 0.9 cm LV Relative Wall Thickness 0.9 RV Internal Dim ED PLAX 3.7 cm LA Volume 51.1 cm??? 18 - 58 / 22 - 52 cm??? M-MODE Aortic Root Diameter MM 2.7 cm LA Systolic Diameter MM 4.5 cm LA Ao Ratio MM 1.7 AV Cusp Separation MM 2.2 cm DOPPLER AV Peak Velocity 154.6 cm/s AV Peak Gradient 9.6 mmHg MV Area PHT 3.2 cm??? Mitral E Point Velocity 118.9 cm/s Mitral A Point Velocity 70.8 cm/s Mitral E to A Ratio 1.7 MV Deceleration Time 239.8 ms TR Peak Velocity 260.2 cm/s TR Peak Gradient 27.1 mmHg Right Ventricular Systolic Press 31.4 mmHg FINDINGS Left Ventricle Severely increased left ventricular wall thickness. Normal left ventricular systolic function with no obvious regional wall motion abnormalities. Normal left ventricular diastolic filling pattern. Left ventricular ejection fraction is estimated at 55-60 %. Right Ventricle Mild right ventricular dilatation. Right ventricular systolic pressure within normal limits. Right Atrium Normal right atrial size. Left Atrium Normal left atrial size. No evidence for an atrial septal defect. Mitral Valve Structurally normal mitral valve. Trace to mild mitral regurgitation. Aortic Valve No aortic valve stenosis or regurgitation. Tricuspid Valve Structurally normal tricuspid valve. Mild tricuspid regurgitation. Pulmonic Valve Trace pulmonic regurgitation. Pericardium No pericardial effusion. Aorta Normal size aortic root and proximal ascending aorta. CONCLUSIONS Normal left ventricular dimension and systolic function Previewed by: Dr. Eric Parikh MD (Electronically Signed) Final Date: 02 October 2021 10:49
== END 2021-10-01 14:05 | disposition home or self-care (01) ==
LOC: EC 23:34 → 6NMEDSUR 10-01 03:20
PROVIDERS: ADMIT Family Medicine; ATTEND Family Medicine
DX: R07.2 Precordial pain (principal); R42 Dizziness and giddiness; R00.1 Bradycardia, unspecified; R55 Syncope and collapse; R06.02 Shortness of breath; R20.2 Paresthesia of skin; R00.2 Palpitations; E11.9 Type 2 diabetes mellitus without complications; I10 Essential (primary) hypertension; F41.9 Anxiety disorder, unspecified; M79.89 Other specified soft tissue disorders; E66.01 Morbid (severe) obesity due to excess calories; Z68.43 Body mass index [BMI] 50.0-59.9, adult; I08.1 Rheumatic disorders of both mitral and tricuspid valves; Z79.84 Long term (current) use of oral hypoglycemic drugs; Z79.899 Other long term (current) drug therapy; Z87.891 Personal history of nicotine dependence; Z82.49 Family history of ischemic heart disease and other diseases of the circulatory system; Z83.3 Family history of diabetes mellitus; Z83.49 Family history of other endocrine, nutritional and metabolic diseases
CPT/HCPCS: 99285; 36415; 93005; 93017; 93306; 80053; 84443; 83735; 84484; 85025; 71046; G0378